=== PATIENT | female | born 1970 | race African-American/Black ===

== ENCOUNTER 2016-12-27 05:11 | Emergency (ER) | payer OTHER ==
[~2016-12-27] VITALS: Ht 170.2 cm; Wt 90.7 kg
[2016-12-27 05:24] VITALS: BP 172/97
[2016-12-27] MEDS ORDERED: IPRATRPIUM/ALBUTEROL 0.5/2.5MG 3 ML NEBU. NEB ONE (05:45)
[2016-12-27] MEDS ORDERED: PREDNISONE 20 MG TABLET PO ONE (06:00)
[2016-12-27] MEDS ORDERED: PROAIR HFA8.5 GM INH (06:08)
[2016-12-27] MEDS ORDERED: BENZ100C PO (06:08)
[2016-12-27] MEDS ORDERED: PRED50TA PO (06:08)
--- NOTE | 2016-12-27 06:09 | PHYS DOC ---
Past Medical History Past Medical History: Hypertension Past Surgical History: Tubal ligation Additional Past Surgical Histo: R ANKLE Alcohol Use: Occasionally Drug Use: None Adult General Chief Complaint Chief Complaint: Congestion HPI HPI 46 yo female who states she's had severe cough for the last week with mild shortness of breath. She states she has history of asthma but has never have an inhaler at home. She denies any fever or chills. She has not really been taking anything for her cough other than [id number] medications with minimal to no relief. She states she feels as though her cough is nonproductive. She denies any chest pain. Review of Systems Review of Systems Constitutional: Denies fever or chills [] Eyes: Denies change in visual acuity, redness, or eye pain [] HENT: Denies nasal congestion or sore throat [] Respiratory: Has cough, has shortness of breath [] Cardiovascular: No additional information not addressed in HPI [] GI: Denies abdominal pain, nausea, vomiting, bloody stools or diarrhea [] : Denies dysuria or hematuria [] Musculoskeletal: Denies back pain or joint pain [] Integument: Denies rash or skin lesions [] Neurologic: Denies headache, focal weakness or sensory changes [] Endocrine: Denies polyuria or polydipsia [] Current Medications Current Medications Current Medications Medications (Trade) Dose Ordered Sig/Matthew Start Time Stop Time Status Last Admin Dose Admin Albuterol/ Ipratropium (Duoneb) 3 ml 1X ONCE 12/27/16 05:45 12/27/16 05:46 DC 12/27/16 05:55 3 ML Prednisone (Prednisone) 60 mg 1X ONCE 12/27/16 06:00 12/27/16 06:01 DC 12/27/16 06:03 60 MG Allergies Allergies Allergies Coded Allergies Type Severity Reaction Last Updated Verified Penicillins Allergy Intermediate 05/18/15 No Physical Exam Physical Exam Constitutional: Well developed, well nourished, no acute distress, non-toxic appearance. [] HENT: Normocephalic, atraumatic, bilateral external ears normal, oropharynx moist, no oral exudates, nose normal. [] Eyes: PERRLA, EOMI, conjunctiva normal, no discharge. [] Neck: Normal range of motion, no tenderness, supple, no stridor. [] Cardiovascular:Heart rate regular rhythm, no murmur [] Lungs & Thorax: Mild expiratory wheezes bilaterally [] Abdomen: Bowel sounds normal, soft, no tenderness, no masses, no pulsatile masses. [] Skin: Warm, dry, no erythema, no rash. [] Back: No tenderness, no CVA tenderness. [] Extremities: No tenderness, no cyanosis, no clubbing, ROM intact, no edema. [] Neurologic: Alert and oriented X 3, normal motor function, normal sensory function, no focal deficits noted. [] Psychologic: Affect normal, judgement normal, mood normal. [] Current Patient Data Vital Signs Vital Signs Date Time Temp Pulse Resp B/P Pulse Ox O2 Delivery O2 Flow Rate FiO2 12/27/16 05:52 97 Room Air 12/27/16 05:24 98.2 95 24 98.2 EKG EKG [] Radiology/Procedures Radiology/Procedures Portable 1 view of the chest did not reveal an acute cardiopulmonary process as interpreted by me. Course & Med Decision Making Course & Med Decision Making Pertinent Labs and Imaging studies reviewed. (See chart for details) This 46-year-old female is having mild bronchospasm and cough was given a breathing treatment with resolution of her symptoms. Upon my reassessment after breathing treatment she is no longer wheezing and feels much improved. Her chest film was unremarkable. I do not see an indication perform any sort of laboratory workup. I will be discharging her home with a course of steroids and an inhaler as well as Tessalon Perles for her cough. I instructed her to continue to use her inhaler every 4-6 hours to relieve her bronchospasm. She was also provided a work note for today Yolie Disclaimer Yolie Disclaimer This electronic medical record was generated, in whole or in part, using a voice recognition dictation system. Departure Departure Impression: Primary Impression: Asthma Additional Impressions: Bronchospasm Cough Disposition: HOME, SELF-CARE Admitting Physician: Other Condition: STABLE Referrals: NO PCP (PCP) Patient Instructions: Asthma, Acute Bronchospasm Additional Instructions: Please take your inhaler as needed for your symptoms. Take your steroid as prescribed. Return to the ER if you develop any worsening of your symptoms. Follow up with your primary doctor in the next 2-3 days for your symptoms. Scripts Albuterol Sulfate (Proair Hfa Inhaler)8.5 Gm [id number] Puff INH PRN Q6HRS PRN SHORTNESS OF BREATH #1 INHALER Ref 0 Prov:SHERRY VELASQUEZ DO 12/27/16 Prednisone 50 Mg Efctyd90 Mg PO DAILY #4 TAB Prov:SHERRY VELASQUEZ DO 12/27/16 Benzonatate (Tessalon Perle)100 Mg [id number] Mg PO TID PRN COUGH #15 CAP Prov:SHERRY VELASQUEZ DO 12/27/16 Problem Qualifiers SHERRY VELASQUEZ DO Dec 27, 2016 06:08
--- NOTE | 2016-12-28 13:59 | RAD ---
Indication chest pain. A single view of the chest was obtained. No prior imaging of the chest is available. The heart and pulmonary vessels appear normal. The lungs are clear. Visualized bony structures appear grossly intact. IMPRESSION: No acute or focal process is seen in the chest
== END 2016-12-27 06:10 | disposition home or self-care (01) ==
LOC: ER 05:11
DX: J45.909 Unspecified asthma, uncomplicated (principal); J98.01 Acute bronchospasm; I10 Essential (primary) hypertension; Z88.0 Allergy status to penicillin
CPT/HCPCS: 71010; 94250; 94640; 99283; J7512; J7620